=== PATIENT | male | born 1930 | race Caucasian/White ===

== ENCOUNTER 2016-09-06 10:18 | Emergency (ER) | payer MEDICARE, OTHER ==
[2016-09-06 10:08] LABS: WBC (NOT ORDERED) (RFLEX) 0 (0-5)
[2016-09-06 10:16] LABS: BASOPHILS 0.7 %; BASOPHILS ABSOLUTE 0.06 10/3/uL (0.0-0.16); EOSINOPHILS 2.2 %; EOSINOPHILS ABSOLUTE 0.18 10/3/uL (0.0-0.53); ER CBC TAT 0 Hrs 09 Mins; HEMATOCRIT 40.7 % (40.0-51.0); HEMOGLOBIN 13.8 g/dL (13.6-17.8); IMMATURE GRANULOCYTES 0.5 %; IMMATURE GRANULOCYTES ABSOLUTE 0.04 10/3/uL (0.0-0.11); LYMPHOCYTES 20.5 %; LYMPHOCYTES ABSOLUTE 1.69 10/3/uL (0.67-4.30); MEAN CORPUS HGB CONC 33.9 g/dL (32.0-36.0); MEAN CORPUSCULAR HEMOGLOB 31.9 pg (26.0-34.0); MEAN PLATELET VOLUME 9.3 fL (9.2-13.0); MONOCYTES 8.9 %; MONOCYTES ABSOLUTE 0.73 10/3/uL (0.21-1.20); NEUTROPHILS 67.2 %; NEUTROPHILS ABSOLUTE 5.53 10/3/uL (2.02-8.40); PLATELET COUNT 220 10/3/uL (150-400); RBC DISTRIBUTION WIDTH 12.4 % (12.0-16.0); RED CELL COUNT 4.33 10/6/uL (4.7-6.1); WHITE BLOOD CELLS 8.2 10/3/uL (4.5-10.5)
[2016-09-06 10:17] LABS: MANUAL DIFF NO %
[2016-09-06 10:18] LABS: ASCORBIC ACID (UR NOT ORDER) NEG (NEG); BILIRUBIN, URINE NEGATIVE (NEG); ER URINALYSIS TAT 0 Hrs 11 Mins; KETONE, URINE NEGATIVE (NEG); LEUKOCYTE ESTERASE(NOT OR NEG (NEG); NITRITE (URINE) NEG (NEG)
[~2016-09-06 10:18] MED LIST: ACCUNE1 INH; ADVAIR115P INH; ALAVERT10 MG PO; ASAB PO; CENTRUM TAB1 TAB PO; CIP5 PO; CO Q-10100 MG PO; CO-Q-10 PO; FISH-EPA1000 MG PO; FLAG500TAB PO; GLUCCHONDR PO; LOP25 PO; NORCO1 TA1 PO; NORV5 PO; PRILO PO; PRILOSEC40 MG PO; PROTONIX PO; SPIRIVA INH; ULTRAM50 PO; VITAMIN D1000 UNI1 PO; ZOCOR20 PO; ZOCOR40 PO; ZOCOR80 MG PO
[2016-09-06 10:26] LABS: INTERNATIONAL NORMAL RATI 1.1 UNITS (-); PARTIAL THROMBO TIME 33.3 SEC (22.5-37.2); PROTIME (NOT ORD) 13.9 SEC (12.0-14.5)
[2016-09-06 10:28] LABS: D-DIMER QUANTITATIVE 1.04 ug/mLFEU (< 0.50)
[2016-09-06 10:28] LABS: BE (BASE EXCESS) -0.7 MEQ/L (0 +/- 2.5); CARBOXYHEMOGLOBIN 1.3 % (0-3); HCO3 (ACTUAL BICARBONATE) 22.8 MEQ/L (23-27); HEMOBLOGIN CONTENT 13.8 G/DL (14-18); INSTRUMENT SERIAL # 8087; METHEMOGLOBIN 0.2 % (0-3); O2 CONTENT 17.9 VOL% (18-24); OPERATOR ID 35091; PCO2 (CO2 TENSION) 34 MMHG (35-45); PO2 (O2 TENSION) 67 MMHG (79-93); SAMPLE Arterial; pH 7.44 (7.37-7.43)
[2016-09-06 10:29] LABS: ALLENS TEST Pos
[2016-09-06 10:30] LABS: BUN (BLOOD UREA NITROGEN) 18 MG/DL (6-23); CALCIUM, SERUM 9.5 MG/DL (8.5-10.4); CHEST PAIN PROFILE TAT 0 Hrs 23 Mins; CHLORIDE, SERUM 101 MMOL/L (96-112); CO2 (CARBON DIOXIDE) 32 MMOL/L (24-34); CREATININE 1.21 MG/DL (0.70-1.30); GFR AFRICAN AMERICAN 63 ML/MIN (>=60); GFR NON AFRICAN AMERICAN 55 ML/MIN (>=60); GLUCOSE, SERUM 91 MG/DL (60-99); SODIUM, SERUM 136 MMOL/L (135-148); TROPONIN I <0.02 NG/ML (<0.05)
[2016-09-06 10:31] LABS: POTASSIUM, SERUM 4.8 MMOL/L (3.5-5.3)
[2016-09-06] MEDS ORDERED: DUONEB INH (11:55)
[2016-09-06] MEDS ORDERED: CYANO1000T PO (11:56)
[2016-09-06] MEDS ORDERED: MULTIVITAMI1 PO (11:56)
[2016-09-06] MEDS ORDERED: ZANTAC150 MG PO (11:56)
[2016-09-06] MEDS ORDERED: LUTEIN10 MG PO (11:57)
[2016-09-06] MEDS ORDERED: ZOCOR20 PO (11:57)
[2016-09-06] MEDS ORDERED: CO Q-10100 MG PO (11:57)
[2016-09-06] MEDS ORDERED: OSTEO BI-FLEX1 EACH PO (11:57)
[2016-09-06] MEDS ORDERED: PROBIOTIC CAPSULE PO (11:57)
[2016-09-06] MEDS ORDERED: NORV10 PO (11:58)
[2016-09-06] MEDS ORDERED: PROTONIX PO (11:58)
[2016-09-06] MEDS ORDERED: SYMBICORT 160/41 INH INH (11:58)
[2016-09-06] MEDS ORDERED: PROAIR HFA INH (11:58)
[2016-09-06] MEDS ORDERED: LOP25 PO (11:58)
[2016-09-06] MEDS ORDERED: INCRUSE ELLI62.5 MCG INH (11:58)
== END 2016-09-06 14:48 | disposition home or self-care (01) ==
LOC: ER 10:18
PROVIDERS: Nurse Practitioner Family
DX: J44.1 Chronic obstructive pulmonary disease with (acute) exacerbation (principal); R09.02 Hypoxemia; J44.9 Chronic obstructive pulmonary disease, unspecified; I10 Essential (primary) hypertension; K21.9 Gastro-esophageal reflux disease without esophagitis; Z87.01 Personal history of pneumonia (recurrent); Z87.891 Personal history of nicotine dependence; Z85.828 Personal history of other malignant neoplasm of skin; Z88.0 Allergy status to penicillin; Z79.899 Other long term (current) drug therapy
CPT/HCPCS: 36600; 71010; 71275; 80048; 81001; 82805; 83605; 83735; 83880; 84484; 85025; 85379; 85610; 85730; 87040; 93005; 94640; 96374; 99285; Q9967